=== PATIENT | male | born 1965 | race Caucasian/White ===

== ENCOUNTER 2018-06-15 11:09 | Emergency (ER) | payer MEDICARE, OTHER ==
[~2018-06-15] VITALS: Ht 175.3 cm; Wt 63.0 kg
[~2018-06-15 11:09] MED LIST: HYDR-3972 PO; PARO-62 PO
[2018-06-15 11:16] VITALS: BP 127/72
[2018-06-15] MEDS ORDERED: TETanus/Pertussis (Acell)/Diphther VAC/PF (Tdap-Adult) 0.5ml syringe IM ONE (11:25)
[2018-06-15] MEDS ORDERED: LIDOcaine 1.5% w/epinephrine 1:200,000 5ml ampul IJ ONE (11:25)
[2018-06-15] MEDS ORDERED: CEPH-571 PO (11:39)
== END 2018-06-15 12:26 | disposition home or self-care (01) ==
LOC: ER 11:09
DX: S61.411A Laceration without foreign body of right hand, initial encounter (principal); Z90.49 Acquired absence of other specified parts of digestive tract; Z88.8 Allergy status to other drugs, medicaments and biological substances; Z79.899 Other long term (current) drug therapy; W26.0XXA Contact with knife, initial encounter; Y93.89 Activity, other specified; Y92.89 Other specified places as the place of occurrence of the external cause; Y99.9 Unspecified external cause status
CPT/HCPCS: 12001; 99283; J3490

== ENCOUNTER 2019-06-24 00:46 | Emergency (ER) | payer MEDICARE ==
[~2019-06-24] VITALS: Ht 175.3 cm; Wt 61.0 kg
[~2019-06-24 00:46] MED LIST changes: +CEPH-571 PO
[2019-06-24] MEDS ORDERED: proparacaine 0.5% ophthalmic drops 15ml LEFTEYE ONE (01:35)
[2019-06-24] MEDS ORDERED: ERYT1OIN6 LEFTEYE (02:03)
[2019-06-24 02:20] VITALS: BP 149/98
== END 2019-06-24 02:23 | disposition home or self-care (01) ==
LOC: ER 00:47
DX: T15.02XA Foreign body in cornea, left eye, initial encounter (principal); Z88.8 Allergy status to other drugs, medicaments and biological substances; Z79.2 Long term (current) use of antibiotics; Z79.899 Other long term (current) drug therapy; Z90.49 Acquired absence of other specified parts of digestive tract; X58.XXXA Exposure to other specified factors, initial encounter; Y93.89 Activity, other specified; Y92.89 Other specified places as the place of occurrence of the external cause; Y99.8 Other external cause status
CPT/HCPCS: 65222; 99284